=== PATIENT | female | born 1995 | race Caucasian/White ===

== ENCOUNTER → 2022-04-12 08:58 | Outpatient (CLI) | payer OTHER, SELFPAY ==
[2022-04-12 11:43] LABS: Hemoglobin 11.2 g/dL (12.0-16.0); Mean Corpuscular HGB Conc 34.9 % (30-36); Mean Corpuscular Hemoglobin 31.9 PG (26-34); Mean Corpuscular Volume 91.2 fL (80-100); Platelet Count 219 X10^3/uL (150-400); Red Blood Cell Count 3.51 X10^6/uL (4.0-5.2); Red Cell Distribution Width 13.1 % (11.6-14.8); White Blood Cell Count 7.5 X10^3/uL (4.5-11.0)
[2022-04-12 12:05] LABS: Glucose Tol Interpretation INTERPRETATION
[2022-04-12 12:29] LABS: Glucose Fasting 71 mg/dL (70-100)
[2022-04-12 12:29] LABS: Glucose 1 Hour 114 mg/dL (70-170)
[2022-04-12 14:06] LABS: Glucose 2 Hour 107 mg/dL (70-140)
== END ==
PROVIDERS: Referring Provider Nurse Practitioner Obstetrics & Gynecology; Visit Provider Nurse Practitioner Obstetrics & Gynecology
DX: Z34.90 Encounter for supervision of normal pregnancy, unspecified, unspecified trimester (principal); Z3A.26 26 weeks gestation of pregnancy
CPT/HCPCS: 36415; 82951; 82952; 85027

== ENCOUNTER 2022-07-08 08:17 | Outpatient (CLI) | payer OTHER, SELFPAY ==
--- NOTE | 2022-07-08 08:45 | PM.OBTRLD ---
Visit Information Visit Information Date of evaluation: 07/08/22 Primary OB Provider: Dayana Campbell On-call OB Provider: Dayana Campbell Reason for Evaluation: Yes rupture of membranes Comments/Additional reasons for admission: 27YO @ 38wks 1day by DAYA P and 7wk US presents for evaluation of leaking clear fluid x 1.5 days. Vital Signs Vital Signs: BP 116/69bpm, HR , T 36.0C Temporal PFSH Medical History (Updated 07/08/22 @ 08:54 by Dayana Campbell CNM) Abuse Bipolar 1 disorder Surgical History (Updated 07/08/22 @ 08:54 by Dayana Campbell CNM) History of appendectomy Family History (Updated 07/08/22 @ 08:55 by Dayana Campbell CNM) Sister Depression Social History (Updated 07/08/22 @ 08:55 by Dayana Campbell CNM) marital status: unmarried,living together number of children: 1 household members: significant other and children lives independently: Yes occupational status: employed Review of Systems Review of Systems ROS: Yes All systems reviewed with the patient and are negative except as otherwise documented Exam Vital Signs (past 8 hours): see above Presentation: vertex Evaluation Evaluation Baseline heart rate: 125 Variability: Moderate (11-25) monitor accelerations: Present Monitor Decelerations: Absent Contraction Frequency (minutes): 0 Category of Tracing: Reactive Cervical dilation (cm): 1 Cervical effacement (%): 50 station: -3 Non-invasive Membranes Rupture Test: negative Diagnosis, Plan/Disposition Final Diagnosis (1) Suspected problem with amniotic cavity and membrane not found: Status: Acute Plan/Disposition Plan: discharge to home with routine labor precautions OB Disposition: home
== END 2022-07-08 09:10 | disposition home or self-care (01) ==
LOC: OB 07-09 10:36
PROVIDERS: Referring Provider Nurse Practitioner Obstetrics & Gynecology; Visit Provider Nurse Practitioner Obstetrics & Gynecology
DX: Z03.71 Encounter for suspected problem with amniotic cavity and membrane ruled out (principal); Z3A.38 38 weeks gestation of pregnancy
CPT/HCPCS: 59025; 84112; G0378; G0379

== ENCOUNTER 2022-07-26 08:32 | Outpatient (CLI) | payer OTHER, SELFPAY ==
--- NOTE | 2022-07-26 11:08 | PM.OBTRLD ---
Visit Information Visit Information Date of evaluation: 07/26/22 Primary OB Provider: Dayana Campbell On-call OB Provider: Dayana Campbell Reason for Evaluation: Yes non-stress test Comments/Additional reasons for admission: 27YO @ [id number] here for evaluation of vaginal bleeding. Was scheduled for an elective IOL today which has been delayed. Phillips balloon placed yesterday in clinic and came out last night at 2300. Continues to contract occasionally, but nothing regular. Continues to notice small amounts of vaginal bleeding and is worried. +FM. No abdominal pain or leaking of fluid. Uncomplicated care w/ CNM. Vital Signs Vital Signs: BP 123/69mHg, HR 108bpm, T 35.6C Temporal PFSH Medical History Abuse Bipolar 1 disorder Surgical History History of appendectomy Family History Sister Depression Social History marital status: unmarried,living together number of children: 1 household members: significant other and children lives independently: Yes occupational status: employed Review of Systems Review of Systems ROS: Yes All systems reviewed with the patient and are negative except as otherwise documented Exam Vital Signs (past 8 hours): see above Presentation: vertex Other: small dark red vaginal bleeding noted during CE Evaluation Evaluation Baseline heart rate: 140 Variability: Moderate (11-25) monitor accelerations: Present Monitor Decelerations: Absent Contraction Frequency (minutes): 6 Uterine Contraction Intensity: Mild Category of Tracing: Reactive Cervical dilation (cm): 4 Cervical effacement (%): 60 station: -3 Diagnosis, Plan/Disposition Final Diagnosis (1) Spotting affecting in third trimester: Status: Acute Plan/Disposition Plan: Reassurance of normal vaginal bleeding after cervical ripening given. IOL rescheduled for 07/29/22. Reviewed labor sx and when to call. OB Disposition: home
== END 2022-07-26 09:30 | disposition home or self-care (01) ==
LOC: LABOR 11:02 → OB 07-31 09:06
PROVIDERS: Referring Provider Nurse Practitioner Obstetrics & Gynecology; Visit Provider Nurse Practitioner Obstetrics & Gynecology
DX: O26.853 Spotting complicating pregnancy, third trimester (principal); Z3A.40 40 weeks gestation of pregnancy
CPT/HCPCS: 59025; G0378; G0379

== ENCOUNTER 2022-07-29 07:11 | Inpatient (IN) | payer OTHER, MEDICAID, SELFPAY ==
--- NOTE | 2022-07-29 07:20 | PM.OBHP.1 ---
OB HPI Date/Time Date of admission: 07/29/22 Date Patient Seen: 07/29/22 Time Patient Seen: 07:20 History of Present Condition Chief complaint: induction : 2 Para: 1 Estimated Date of Delivery: 07/21/22 Estimated Gestational Age (weeks): 41.1 Narrative: Katiana Estrada is a 27 year old female @ [id number] by LMP and early US presents for post dates IOL. Was originally scheduled for an elective IOL on 07/26/22 @ 40.5wks, but was delayed to today. Phillips balloon was placed in the afternoon of 07/25/22 and came out at 2300 on 07/25/22. Continued to have rare, mild contractions with scant vaginal bleeidng. No leaking of fluid. PN care w/ CNM complicated by bipola I disorder diagnosed at 8wks of , now stable on quetiapine 300mg daily. Planning an epidural. Partner is present and supportive. Indications Indication for induction OB: post dates History of Present care: good care, initiated at week # (7), number of visits (14) and pounds weight gain (17) Dating criteria: LMP confirmed by 1st trimester US Ultrasounds: normal mid trimester US Obstetrical complications: none Medical complications: psychiatric (bipolar I disorder) Preadmission Labs Blood type: A (+) positive -: Antibody screen: negative, GBS status: negative, HBsAG: negative, HIV: negative and RPR/VDLR: negative -: Chlamydia screen: not detected and Gonorrhea screen: not detected -: Rubella: immune and Varicella: immune HCT: 32 HCAB: negative PAP: Normal Cell-free DNA: Negative Narrative: 2hr gtt: 71, 114 ,107 Prior (ies) History: 01/24/2015: NSVB @ [id number], 15hr labor, Female, Emersyn, 8lbs 3oz, Epidural, post dates IOL Evaluation Evaluation Baseline heart rate: 150 Variability: Moderate (11-25) monitor accelerations: Present Monitor Decelerations: Absent Contraction Frequency (minutes): 0 Uterine Contraction Intensity: Mild Status: Category l Dilation: 3-4 cm Effacement: 60-70% station: -2 Position of cervix: posterior Consistency: soft New score: 7 PFSH Medical History Abuse Bipolar 1 disorder Surgical History History of appendectomy Family History Sister Depression Social History marital status: unmarried,living together number of children: 1 household members: significant other and children lives independently: Yes occupational status: employed Smoking Status: Former smoker Meds Home Medications and Allergies Home Medications Medication Instructions Recorded Confirmed Type quetiapine 300 mg tablet,extended 300 mg PO 07/29/22 History release 24 hr (Seroquel XR) Allergies Allergy/AdvReac Type Severity Reaction Status Date / Time No Known Drug Allergies Allergy Verified 07/29/22 08:19 Review of Systems Review of Systems ROS: Yes All systems reviewed with the patient and are negative except as otherwise documented OB Exam Resp Effort & Inspection: normal respiratory effort and able to speak in complete sentences Auscultation: clear to auscultation bilaterally Cardio Rate: regular rate Rhythm: regular rhythm Heart Sounds: S1 normal and S2 normal Presentation: vertex Objective Labs Result Diagrams: 07/29/22 07:30 Assessment and Plan Assessment and Plan Assessment and Plan narrative: A: Term primipara IOL for post dates No indication for GBS prophylaxis Bipolar 1- stable on quetiapine Cat IFHR P: Admit, routine orders. Pitocin per protocol. Will consider AROM @ next exam. Epidural when requested. Reassess in 4 hours or sooner, PRN.
[2022-07-29 08:05] LABS: Add Manual Diff / Slide Review NO; Basophils Absolute Auto 0 /uL (0-100); Basophils Percent Auto 0.2 % (0-2); Eosinophils Absolute Auto 100 /uL (0-450); Eosinophils Percent Auto 0.7 % (2-4); Hematocrit 33.1 % (36-46); Hemoglobin 11.3 g/dL (12.0-16.0); Lymphocytes Absolute Auto 1600 /uL (1100-4500); Lymphocytes Percent Auto 17.9 % (25-40); Mean Corpuscular HGB Conc 34.2 % (30-36); Mean Corpuscular Volume 90.7 fL (80-100); Monocytes Absolute Auto 500 /uL (0-900); Monocytes Percent Auto 5.1 % (3-14); Neutrophils Absolute Auto 6700 /uL (1500-7000); Neutrophils Percent Auto 76.1 % (50-75); Platelet Count 186 X10^3/uL (150-400); Red Blood Cell Count 3.65 X10^6/uL (4.0-5.2); Red Cell Distribution Width 13.4 % (11.6-14.8); White Blood Cell Count 8.9 X10^3/uL (4.5-11.0)
[2022-07-29 08:17] VITALS: BP 103/59
[2022-07-29 08:17] LABS: COVID19 -Nasal RAPID Negative (Negative)
[2022-07-29] MEDS: LACTATED RINGERS 1,000 ML 100 ML IV ×2 (08:52→12:59)
[2022-07-29] MEDS: OXYTOCIN PREMIX 30 UNIT/500 ML PLAST..BAG IV (08:53)
--- NOTE | 2022-07-29 12:16 | PM.OBPNLAB ---
Date/Time Date Patient Seen: 07/29/22 Time Patient Seen: 12:16 Pain Control Pain control: tolerating well (wants epidural soon) Comments: Has been breathing through strong contractions for about 1 hours. Planning to get her epidural after AROM. Agreeable to AROM at this time. VS: BP 123/63mmHg, HR 82bpm, T 36.2C Temporal Pelvic Exam Dilation (cm): 4 Effacement (%): 8 station: -2 Amniotic membrane status: Ruptured (AROM during exam) Comments: copious clear fluid Contractions Monitor mode: External Pitocin rate (mU/min): 8 Contraction frequency (min): 2 Contraction duration (min): 1 Contraction pattern: Regular Contraction intensity: Moderate Status status: Category l Heart Rate Baseline: 140 Monitor Accelerations: Present Monitor Decelerations: Absent Monitor Variability: Moderate Assessment and Plan Assessment: induction ongoing Plan: continuous present management Comments: Epidural KAREN. Titrate pitocin, per protocol. reassess in 4 hours or sooner, PRN.
[2022-07-29] MEDS: FENT 2MCG/ML BUPIV 0.125% EPI 200 MCG/100 ML PLAST..BAG 7.5 MCG EPIDURAL (12:48)
[2022-07-29] MEDS: ACETAMINOPHEN 325 MG TABLET 650 MG PO ×2 (16:31→23:30)
--- NOTE | 2022-07-29 17:51 | PM.OBPRVD ---
Events: Labor Induction Labor & Delivery Delivery date: 07/29/22 Intrapartal Events: None Cervical ripening method: per Phillips bulb protocol Induction method: per pitocin protocol Delivery augmentation: rupture of membranes Delivery monitor: external FHT and external uterine Route of delivery: L&D Laceration Description: None Quantitative Blood Loss: 60 Anesthesia Type: Epidural Narrative: Katiana labored well with an epidural for anesthesia. Pitocin (max dose 10mu/min) and AROM led to rapid labor progression and sensation of rectal pressure. Pushing initiated at C/C/+1. Pitocin was decreased, then discontinued during second stage. Coaching and strong maternal efforts let to NSVB of a vigorous baby boy in TRAVIS position. delivered through a single loose nuchal cord with easy delivery of the shoulders. was placed on maternal abdomen by FOB for drying and skin to skin. Remaining 30 units of pitocin in 500mL LR was started at 300mL/hr for AMTSL. After cessation of pulsation, the cord was double clamped by CNM and cut by FOB. Cord blood hold sample was collected. Gentle cord traction and single maternal push led to spontaneous, Schultze, delivery of an apparently intact placenta, membranes and 3VC. Funsid immediately firm and bleeding minimal. Vagina and perineum inspected and intact. QBL 60mL. Baby 1: gender: Male Presentation: vertex Position: Left Occiput Anterior Placenta delivery description: Spontaneous Cord Vessel Description: 3 Vessels, Nuchal Cord and Loose score (1 min): 9 score (5 min): 9 weight: 3.755 kg Plan for aftercare: Routine care
[2022-07-29] MEDS: KETOROLAC 30 MG/ML VIAL IV (18:28)
[2022-07-29] MEDS: QUETIAPINE 100 MG TABLET 300 MG PO (21:44)
[2022-07-29 23:30] VITALS: TEMP 36.6
[2022-07-30 01:16] VITALS: TEMP 36.7
[2022-07-30] MEDS: IBUPROFEN 600 MG TABLET PO ×2 (01:16→07:17)
--- NOTE | 2022-07-30 08:28 | PM.OBDS.1 ---
Discharge Providers Provider Date of admission: 07/29/22 17:39 Discharge Date: 07/30/22 Primary care physician: Doctor Deon MD Consults: 07/30/22 17:49 Consult to Locomotive Crane Operator Helper Routine Comment: Discharge provider: Dayana Campbell CNM Summary Hospital Course Date Patient Seen: 07/30/22 Time Patient Seen: 08:29 Diagnoses: O80 Hospital Course: PPD1: Stable s/p NSVB with no lacerations. Voiding, ambulating and independently. tolerating a general diet. Pain is well controlled with ibuprofen. Vaginal bleeding is moderate, without clots. Desires discharge to home KAREN. Partner is present and supportive. Peripartum Data Infant Delivery Method: Natural Vaginal Laceration Description: None Episiotomy description: None complications: none 1: Gender: Male Disposition of : home Discharge Diagnosis (1) Encounter for full-term uncomplicated delivery: Status: Acute Time Spent with Patient Time attestation: Total time spent providing and/or coordinating discharge services: Objective Labs Result Diagrams: 07/29/22 07:30 Labs: Laboratory Results - last 24 hr 07/29/22 07:30 Blood Type A Positive Antibody Screen Negative Exam Vital Signs (past 8 hours): - 07/30/22 01:16 Temperature 98.1 F BP 109/63, HR 87bpm, RR 16/min, T 98.1F Temporal Other: Fundus firm @ U, lochia small, perineum intact Discharge Plan Discharge Plan Patient Disposition: Home Discharge orders & Medications Prescriptions: New ibuprofen 600 mg Tablet 600 mg PO Q6HR PRN (Reason: Pain, Mild (1-3)) 14 Days Qty: 60 0RF Continued quetiapine [Seroquel XR] 300 mg tablet extended release 24 hr 300 mg PO Label Comments: take 1 tablet by mouth every evening Follow up/Referrals: Doctor Chavarria MD [Primary Care Provider] - Dayana Campbell CNM [Advanced Pattern Perforating Machine Operator] - (Follow-up phone call 08/12/22 @ 1:15pm Follow-up in 09/09/22 @ 1:15pm ) Diet/Activity/Treatments Diet: Diet as Tolerated and Regular Activity: pelvic rest x 6 weeks Skin/Wound/Dressing Care Report to your healthcare provider any signs of infection, such as:: chills, fever, increased pain, unusual drainage and unusual redness Visit Report/Discharge Packet Instructions: DI for Depression Discharge Data Primary Care Provider: Miscellaneous,Doctor
== END 2022-07-30 12:50 | disposition home or self-care (01) | DRG 560 ==
PROVIDERS: Admitting Provider Nurse Practitioner Obstetrics & Gynecology; Referring Provider Nurse Practitioner Obstetrics & Gynecology; Visit Provider Nurse Practitioner Obstetrics & Gynecology
DX: O48.0 Post-term pregnancy (principal); O99.344 Other mental disorders complicating childbirth; F31.9 Bipolar disorder, unspecified; Z3A.41 41 weeks gestation of pregnancy; Z37.0 Single live birth; Z20.822 Contact with and (suspected) exposure to COVID-19
CPT/HCPCS: 36415; 59050; 85025; 86850; 86900; 86901; 87635; C9803; G0378; G0379; J1885; J2590

== ENCOUNTER → 2023-08-11 09:50 | Outpatient (CLI) | payer OTHER, MEDICAID, SELFPAY ==
[2023-08-11 11:23] LABS: Add Manual Diff / Slide Review NO; Basophils Absolute Auto 0 /uL (0-100); Basophils Percent Auto 0.3 % (0-2); Eosinophils Absolute Auto 100 /uL (0-450); Eosinophils Percent Auto 0.9 % (2-4); Hematocrit 38.9 % (36-46); Hemoglobin 13.2 g/dL (12.0-16.0); Lymphocytes Absolute Auto 2000 /uL (1100-4500); Lymphocytes Percent Auto 25.8 % (25-40); Mean Corpuscular HGB Conc 33.9 % (30-36); Mean Corpuscular Hemoglobin 29.9 PG (26-34); Mean Corpuscular Volume 88.2 fL (80-100); Monocytes Absolute Auto 400 /uL (0-900); Monocytes Percent Auto 4.7 % (3-14); Neutrophils Absolute Auto 5400 /uL (1500-7000); Neutrophils Percent Auto 68.3 % (50-75); Platelet Count 278 X10^3/uL (150-400); Red Blood Cell Count 4.41 X10^6/uL (4.0-5.2); Red Cell Distribution Width 13.5 % (11.6-14.8); White Blood Cell Count 7.9 X10^3/uL (4.5-11.0)
[2023-08-11 11:42] LABS: Alanine Aminotransferase 34 IU/L (<35); Albumin 4.6 g/dL (3.5-5.0); Albumin Globulin Ratio 1.5 (1.0-2.8); Alkaline Phosphatase 55 U/L (38-126); Aspartate Aminotransferase 29 IU/L (14-36); BUN Creatinine Ratio 20.6 (6-22); Bilirubin Total 0.7 mg/dL (0.2-1.3); Blood Urea Nitrogen 14 mg/dL (7-17); Carbon Dioxide 25 mmol/L (22-32); Chloride 104 mmol/L (98-107); Estimated Glomerular Filt Rate > 60 mL/min (>60); Glucose 96 mg/dL (70-100); HEMOLYSIS < 15 (0-50); Potassium 3.9 mmol/L (3.4-5.1); Sodium 138 mmol/L (137-145); Total Protein 7.6 g/dL (6.3-8.2)
--- NOTE | 2023-08-11 14:18 | DI.US.S_ITS ---
PROCEDURE: US ABDOMEN LIMITED INDICATIONS: severe RUQ pain TECHNIQUE: Real-time scanning was performed of the abdominal and retroperitoneal organs, with image documentation. COMPARISON: None. FINDINGS: Liver: Liver is normal in size and homogeneous in echotexture. A nonvascular, nonshadowing hyperechoic focus is seen within the left lobe of the liver that measures up to 1.4 cm. The main portal vein demonstrates normal size and demonstrates normal appearing, hepatopetal flow. Gallbladder: The gallbladder is contracted, which limits its evaluation. No gallstones. The gallbladder wall measures at the upper limits of normal at 3 mm. No pericholecystic edema. Negative sonographic Fuentes's sign. Biliary ducts: Intrahepatic bile ducts are non-dilated. Extrahepatic bile duct caliber measures 3 mm. Normal is 6-7 mm or less in diameter, or 10 mm or less post-cholecystectomy. Pancreas: Visualized portions of the pancreas are sonographically normal. Right Kidney: Normal in size and echotexture, without hydronephrosis. No solid masses. IVC: Intrahepatic inferior vena cava is patent where visualized. Miscellaneous: No free abdominal fluid. IMPRESSION: Contracted gallbladder, without a significant sonographic abnormality seen of the gallbladder. The gallbladder wall measures the upper limits of normal, which is most likely related to the contract is state of the gallbladder. Additional findings: Liver hemangioma Note: Concordant preliminary findings given by the health services administrator upon the completion of the examination to [facility] 3:00 p.m. on August 11, 2023. Dictated by: Austen Trotter M.D. on 08/11/2023 at 14:12 Approved by: Austen Trotter M.D. on 08/11/2023 at 14:14
[2023-08-11 14:19] LABS: Appearance Urine UA CLEAR; Bilirubin Urine UA NEGATIVE (NEGATIVE); Color Urine UA YELLOW; Glucose Urine UA NEGATIVE (Negative); Ketones Urine UA NEGATIVE (NEGATIVE); Leukocyte Esterase Urine UA NEGATIVE (NEGATIVE); Nitrite Urine UA NEGATIVE (Negative); Occult Blood Urine UA NEGATIVE (Negative); Protein Urine UA NEGATIVE (Negative); Urobilinogen Urine UA 0.2 E.U./dL (0.2)
[2023-08-11 14:25] LABS: Pregnancy Test Urine Negative (Negative)
[2023-08-11 14:28] LABS: Bacteria Urine Moderate (10-30); Culture Indicated Urine Specimen Cultured; RBC Urine None Seen (0-5/HPF); Squamous Epithelial Cell Urine 0-1 /HPF (0-5/HPF); WBC Urine 0-1/HPF (0-5/HPF)
[2023-08-12 07:09] LABS: Interpretation Negative (Negative)
== END ==
PROVIDERS: PCP Family Medicine; Referring Provider Family Medicine; Visit Provider Family Medicine
DX: K82.0 Obstruction of gallbladder (principal); D18.09 Hemangioma of other sites; R10.11 Right upper quadrant pain; R51.9 Headache, unspecified; F31.9 Bipolar disorder, unspecified
CPT/HCPCS: 36415; 76705; 80053; 81001; 81025; 83013; 85025; 87086

== ENCOUNTER → 2023-09-18 15:47 | Outpatient (CLI) | payer OTHER, MEDICAID, SELFPAY ==
--- NOTE | 2023-09-18 15:49 | DI.RAD.S_ITS ---
PROCEDURE: XR CHEST 2V INDICATIONS: cough TECHNIQUE: 2 views of the chest were acquired. COMPARISON: None. FINDINGS: Surgical changes and devices: None. Lungs and pleura: Lungs are clear. No pleural effusions or pneumothorax. Mediastinum: Mediastinal contours are normal. Heart size is normal. Bones and chest wall: No suspicious bony abnormalities. Soft tissues appear unremarkable. IMPRESSION: No acute cardiopulmonary process. Dictated by: Yu Looney M.D. on 09/18/2023 at 17:43 Approved by: Yu Looney M.D. on 09/18/2023 at 17:43
== END ==
PROVIDERS: PCP Family Medicine; Referring Provider Family Medicine; Visit Provider Family Medicine
DX: R05.9 Cough, unspecified (principal)
CPT/HCPCS: 71046

== ENCOUNTER → 2024-09-07 10:37 | Outpatient (CLI) | payer OTHER, SELFPAY ==
[2024-09-07 12:13] LABS: COVID-19 CEPHEID 4-PLEX PCR POSITIVE (Negative); Influenza A - CEPHEID Flu A NEGATIVE (NEGATIVE); Influenza B - CEPHEID Flu B NEGATIVE (NEGATIVE); Respiratory Syncytial Virus Negative (Negative)
== END ==
PROVIDERS: PCP Family Medicine; Visit Provider Nurse Practitioner Family
DX: R05.1 Acute cough (principal); J02.9 Acute pharyngitis, unspecified
CPT/HCPCS: 0241U; 87070